=== PATIENT | female | born 1980 | race Caucasian/White ===

== ENCOUNTER → 2019-07-15 | Outpatient (CLI) | payer OTHER ==
--- NOTE | 2019-07-15 10:56 | Diagnostic Imaging Report ---
INDICATION: Bilateral breast pain as well as a left breast lump. Correlation is made with prior mammograms from 01/09/2012 and 05/29/2010. 2-D and 3-D bilateral diagnostic mammography was performed with CAD. Scattered fibroglandular densities are identified bilaterally. There are scattered benign calcifications in both breasts. There is intra-parenchymal lymph node in the outer aspect of the left breast. There is a focal density in the retroareolar and slightly outer aspect of the left breast, indeterminate. No other masses are seen. No suspicious microcalcifications are identified. Axillae are unremarkable. IMPRESSION: BI-RADS 0 1. Unremarkable right breast. 2. Density in the retroareolar slightly outer left breast, indeterminate. Further evaluation of this area with ultrasound is recommended. In addition, ultrasound of the areas of pain bilateral breast is recommended and will be performed today. ACR BI-RADS Category 0: Incomplete. (Needs additional imaging evaluation). Result letter will be mailed to the patient. Note: At least 10% of breast cancer is not imaged by mammography. Dictated by: Dictated on workstation # [id number]
--- NOTE | 2019-07-15 11:16 | Diagnostic Imaging Report ---
INDICATION: Bilateral breast pain and left breast density. CORRELATION is made with diagnostic mammogram earlier this same day. RIGHT BREAST: Sonographic interrogation of the area of pain in the right breast was performed, corresponding to the 6-7 o'clock location. No sonographic abnormality is seen. No solid or cystic mass is detected. LEFT BREAST: Sonographic interrogation of the area of pain was performed, corresponding to the 12-3 o'clock location. No sonographic abnormality is seen. In addition, the lateral and retroareolar aspect of the left breast was evaluated due to density noted on mammography. Fibroglandular tissue is identified at this location. No discrete mass or area of shadowing is detected. IMPRESSION: BI-RADS 0 No concerning sonographic findings are identified. The area of the slightly irregular density in the retroareolar and slightly outer aspect of the left breast on mammography most likely represent fibroglandular tissue. However, in light of patient's strong family history of breast carcinoma, breast MRI would be recommended for further evaluation. Dictated by: Dictated on workstation # [id number]
== END ==
LOC: RAD 08:36
PROVIDERS: ATTEND Nurse Practitioner Family
DX: N63.20 Unspecified lump in the left breast, unspecified quadrant (principal); N64.4 Mastodynia
CPT/HCPCS: 76642; 77062; 77066

== ENCOUNTER → 2020-03-01 | Outpatient (CLI) | payer OTHER ==
--- NOTE | 2020-03-01 14:26 | Diagnostic Imaging Report ---
INDICATION: Bilateral breast milky discharge and bilateral breast pain. COMPARISON: 07/15/2019 and 01/09/2012. TECHNIQUE: 2D and 3D bilateral diagnostic mammography was performed with CAD. FINDINGS: Scattered fibroglandular densities are identified bilaterally. A benign intraparenchymal lymph node in the upper outer left breast is stable. No new mass or malignant appearing microcalcifications are seen. There are benign calcifications in both breasts. The axillae are unremarkable. IMPRESSION: No mammographic features suspicious for malignancy are identified. Even so, directed sonographic interrogation of the retroareolar regions and areas of pain is recommended and will be performed today. ACR BI-RADS Category 0: Incomplete. (Needs additional imaging evaluation). Result letter will be mailed to the patient. Note: At least 10% of breast cancer is not imaged by mammography. Dictated by: Dictated on workstation # [id number]
--- NOTE | 2020-03-01 14:56 | Diagnostic Imaging Report ---
INDICATION: Bilateral nipple discharge and bilateral breast pain. COMPARISON: Correlation is made with the diagnostic study from earlier this same day. FINDINGS: Sonographic interrogation of the retroareolar regions of both breasts as well as areas of pain in both breasts was performed. No sonographic abnormality is seen. No solid or cystic mass is detected. IMPRESSION: No sonographic abnormality is identified. Clinical followup is recommended. ACR BI-RADS Category 1: Negative. Dictated by: Dictated on workstation # [id number]
== END ==
LOC: RAD 13:45
PROVIDERS: ATTEND Nurse Practitioner Family
DX: N64.4 Mastodynia (principal); R92.8 Other abnormal and inconclusive findings on diagnostic imaging of breast; R93.89 Abnormal findings on diagnostic imaging of other specified body structures
CPT/HCPCS: 76642; 77066; G0279; 77062